=== PATIENT | female | born 1980 | race Caucasian/White ===

== ENCOUNTER 2017-04-14 16:59 | Emergency (ER) | payer OTHER ==
[~2017-04-14] VITALS: Ht 177.8 cm; Wt 68.0 kg
[~2017-04-14 16:59] MED LIST: BACTRIM DS TAB1 EACH PO
[2017-04-14 17:06] VITALS: BP 110/76
--- NOTE | 2017-04-14 17:08 | ED ANIMAL BITE/WOUND CHECK ---
History of Present Illness General Chief Complaint: Skin Rash/ Abcess Stated Complaint: WOUND CHECK Source: patient, old records Exam Limitations: no limitations Vital Signs & Intake/Output Vital Signs & Intake/Output Vital Signs Date Time Temp Pulse Resp B/P B/P Pulse O2 O2 Flow FiO2 Mean Ox Delivery Rate 04/14 1706 98.6 100 18 110/76 98 Room Air ED Intake and Output 04/15 0000 04/14 1200 Intake Total 0 Output Total Balance 0 Intake, Oral 0 Patient 150 lb Weight Weight Reported by Patient Measurement Method Allergies Coded Allergies: Penicillins (RASH/VOMIT 04/11/17) acetaminophen (From TYLENOL) (VOMIT 04/11/17) aspirin (VOMIT 04/11/17) buprenorphine (From SUBOXONE) (SEIZURES 04/11/17) naloxone (From SUBOXONE) (SEIZURES 04/11/17) tramadol (SEIZURES 04/11/17) Uncoded Allergies: DUST/MOLD (UNKNOWN 04/11/17) Reconcile Medications Fluconazole (Diflucan) 150 MG TABLET 1 TAB PO Q72H YEAST INFECTION Ibuprofen 600 MG TABLET 1 TAB PO TID PRN PAIN with food Sulfamethoxazole/Trimethoprim (Bactrim Ds Tablet) 800 MG-160 MG TABLET 1 TAB PO BID abscess Triage Note: 36 YO FEMALE TO TRIAGE FOR WOUND CHECK OF ABCESS TO L ARM. Triage Nurses Notes Reviewed? yes Onset: Abrupt Duration: week(s): (1) Timing: single episode today Injury Environment: home Is Injury an Animal Bite? No No Modifying Factors: none LMP (ages 10-50): unknown : No Patient currently breastfeeds: No HPI: 36-year-old female past medical history of epilepsy presents for a wound check. Patient had an incision and drainage of an abscess in her right antecubital area about one week ago. She was started on antibiotics. She feels like the abscess is healing well. She's been change dressing once daily. The redness and swelling have proceeded. No fevers. No discharge. She's been taking her antibiotics as directed. (Helio Dumont) Past History Travel History Traveled to [place] past 21 day No Medical History Any Pertinent Medical History? see below for history Neurological: EPILEPSY EENT: TMJ Musculoskeletal: SPINAL STENOSIS BULDGED DISCS Surgical History Surgical History: non-contributory Psychosocial History What is your primary language [place] Tobacco Use: Never used Family History Hx Contributory? No (Helio Dumont) Review of Systems Review of Systems Constitutional: Reports: no symptoms. EENTM: Reports: no symptoms. Respiratory: Reports: no symptoms. Cardiovascular: Reports: no symptoms. GI: Reports: no symptoms. Genitourinary: Reports: no symptoms. Musculoskeletal: Reports: no symptoms. Skin: Reports: see HPI, erythema, lesions. Neurological/Psychological: Reports: no symptoms. Hematologic/Endocrine: Reports: no symptoms. Immunologic/Allergic: Reports: no symptoms. All Other Systems: Reviewed and Negative (Helio Dumont) Physical Exam Physical Exam General Appearance: well developed/nourished, no apparent distress, alert, awake Head: atraumatic, normal appearance Eyes: Bilateral: normal appearance, EOMI. Ears, Nose, Throat: hearing grossly normal Neck: normal inspection, supple, full range of motion Respiratory: normal breath sounds, chest non-tender, no respiratory distress, lungs clear Cardiovascular: regular rate/rhythm, normal peripheral pulses Peripheral Pulses: 2+ radial (R), 2+ radial (L) Back: normal inspection, normal range of motion Extremities: normal range of motion, THERE IS A WELL-HEALED ABSCESS IN THE RIGHT ANTECUBITAL AREA. mINIMAL SURROUNDING ERYTHEMA AND INDURATION. nO FOCAL FLUCTUANT AREAS NO DISCHARGE. fULL RANGE OF MOTION OF THE RIGHT UPPER EXTREMITY IS INTACT. nO LYMPHATIC STREAKING. nO FOCAL FLUCTUANT AREAS. nO AXILLARY LYMPHADENOPATHY Neurologic/Psych: no motor/sensory deficits, awake, alert, oriented x 3, normal gait Skin: intact, normal color, warm/dry (Helio Dumont) Progress Differential Diagnosis: abscess, cellulitis, joint infection, tenosysnovitis Plan of Care: Patient seen and evaluated. The abscess healing well. Culture grew strep. No MRSA. Patient was instructed to finish antibiotics for the full course. Keep the area clean and dry change dressing once daily. Apply warm compresses. Discussed return precautions. Follow-up with primary care doctor in another few days for wound check. Return with any concerns. Patient appears well she agrees. (Helio Dumont) Departure Departure Disposition: HOME OR SELF CARE Condition: Stable Clinical Impression Primary Impression: Abscess re-check Referrals: Pratik Callaway PA-C (PCP/Family) Additional Instructions: Rest, keep the area clean and dry. Finish antibiotics for the full course. Change dressing once daily. Apply warm compresses for 15-20 minutes every few hours. Monitor symptoms. He should follow up with her primary care doctor in another 3-5 days for another check. Return sooner with spreading redness worsening swelling fever or red streaking. Departure Forms: Customer Survey General Discharge Information Prescriptions: Current Visit Scripts Fluconazole (Diflucan) 1 TAB PO Q72H #2 TAB Ibuprofen 1 TAB PO TID PRN PAIN #30 TAB with food (Helio Dumont) PA/SCREEN STRETCHER Co-Sign Statement Statement: ED Attending supervision documentation- [] I saw and evaluated the patient. I have also reviewed all the pertinent lab results and diagnostic results. I agree with the findings and the plan of care as documented in the PA's/SCREEN STRETCHER's documentation. [X] I have reviewed the ED Record and agree with the PA's/SCREEN STRETCHER's documentation. [] Additions or exceptions (if any) to the PAs/SCREEN STRETCHER's note and plan are summarized below: [] (Vera RAINES,Porfirio Obando)
[2017-04-14] MEDS ORDERED: DIFLUCAN150 M1 PO (17:13)
[2017-04-14] MEDS ORDERED: IBUPROFEN600 M1 PO (17:13)
== END 2017-04-14 17:13 ==
LOC: ERH 16:59
DX: L02.413 Cutaneous abscess of right upper limb (principal)